=== PATIENT | male | born 1955 | race Caucasian/White ===

== ENCOUNTER 2017-05-09 13:16 | Emergency (ER) | payer MEDICARE, OTHER ==
[~2017-05-09] VITALS: Ht 193 cm; Wt 79.5 kg
[~2017-05-09 13:16] MED LIST: AMOX500C; COZA50TA PO; MOXI400T4 PO; OMEGCAP2 OR; TAB-TAB PO
[2017-05-09 13:23] VITALS: BP 145/83; PULSE 88; RESP 16; TEMP 98.9; O2SAT 99
[2017-05-09 13:45] LABS: BLOOD, URINE LARGE (NEG); GLUCOSE,URINE NEG (NEG); KETONE, URINE NEG (NEG); NITRITE,URINE NEG (NEG)
[2017-05-09 13:53] LABS: METHOD OF COLLECTION CLEAN CATCH; URINE COLOR RED (YELLW/STRAW)
[2017-05-09 13:56] LABS: COMMENT (UR) CULTURE INDICATED; CULTURE IF INDICATED CULTURE INDICATED; SQUAMOUS EPITHELIAL CELL URINE 0-5 /hpf (0-5); TRANSITIONAL EPI CELLS, URINE 0-5 /hpf
[2017-05-09] MEDS ORDERED: NEBI20 PO (14:13)
[2017-05-09] MEDS ORDERED: LOSA25TA PO (14:13)
[2017-05-09] MEDS ORDERED: MOXI400T4 PO (14:29)
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
== END 2017-05-09 14:43 | disposition home or self-care (01) ==
LOC: PHED 13:16 → PHEFT 14:43
DX: N30.01 Acute cystitis with hematuria (principal); G82.20 Paraplegia, unspecified; I10 Essential (primary) hypertension
CPT/HCPCS: 81001; 87086; 99283